=== PATIENT | female | born 1960 | race Caucasian/White ===

== ENCOUNTER → 2016-10-21 | Outpatient (CLI) | payer BC ==
--- NOTE | 2016-10-21 12:00 | DI ---
US PELVIC-TRANSVAGINAL, US PELVIC COMPLETE (NON OB),10/21/2016 9:19 AM: Clinical History: Postmenopausal bleeding. Previous Exam: CT abdomen pelvis performed November 04, 2015. Findings: Multiple grayscale and color Doppler sonographic images are obtained through the pelvis both transabd ominally and endovaginally, and demonstrate a slightly heterogeneous uterus measuring 6.6 x 3.3 x 4.3 cm with an endometrial stripe measuring 7 mm. The right ovary measures 2.2 x 0.9 x 1.6 cm and the left ovary measures 2.3 x 0.9 x 2.3 cm. There is normal Doppler flow seen within both ovaries and a few maturing follicles. There is no free fluid within the cul-de-sac. Impression: Slightly heterogeneous uterine echotexture may represent underlying fibroids.
== END ==
LOC: US 09:15
PROVIDERS: ATTEND Nurse Practitioner Family
DX: N95.0 Postmenopausal bleeding (principal)
CPT/HCPCS: 76830; 76856